=== PATIENT | female | born 1975 | race Caucasian/White ===

== ENCOUNTER 2022-12-17 07:37 | Day surgery (SDC) | payer MEDICAID ==
[~2022-12-17] VITALS: Ht 154.9 cm; Wt 72.6 kg
[2022-12-17] MEDS ORDERED: MIDAZOLAM HCL 5 MG/5 ML VIAL ONE (07:41)
[2022-12-17] MEDS ORDERED: SIMETHICONE 40 MG/0.6 ML ML ONE (07:41)
[2022-12-17] MEDS ORDERED: MEPERIDINE 50 MG/ML VIAL ONE (07:41)
[2022-12-17 07:52] LABS: HCG,QUAL RESULT NEGATIVE (NEGATIVE)
[2022-12-17] MEDS ORDERED: ONDANSETRON HCL 4 MG/2 ML VIAL ONE (08:13)
[2022-12-17 10:42] VITALS: BP_SYST 109
== END 2022-12-17 10:17 | disposition home or self-care (01) ==
LOC: SDS 07:37 → SMU 07:58 → SDS 10:17
PROVIDERS: ATTEND Internal Medicine Gastroenterology
DX: D64.9 Anemia, unspecified (principal); D12.5 Benign neoplasm of sigmoid colon; K29.50 Unspecified chronic gastritis without bleeding; K29.80 Duodenitis without bleeding; K64.9 Unspecified hemorrhoids; K21.9 Gastro-esophageal reflux disease without esophagitis; Z98.84 Bariatric surgery status; Z79.899 Other long term (current) drug therapy
CPT/HCPCS: 45385; 43239; 84703; 88305; 88312; 88313; 99152; 99153; G0378; J2250; J2405; J2175